=== PATIENT | male | born 1980 | race Caucasian/White ===

== ENCOUNTER 2016-09-10 08:35 | Emergency (ER) | payer MEDICAID ==
[2016-09-10 08:41] VITALS: BP 132/82
--- OUTSIDE RECORDS SUMMARY | 2016-09-10 08:52 | XMS REPORT | CCD ---
:1980 Author Name VALARIE DAVE Address [address] [facility] Unavailable [place], [place] [id number] Care Team Providers Name Role Phone MOHINDER AVERY Attending Physician Unavailable MOHINDER AVERY Er Physician 1 Unavailable NUNO Eason Registered Nurse Unavailable Vital Signs Vital Sign Value Unit Date/Time Recent/Initial? Weight Measured 225 lbs 10/10/2014 12:29 Initial VS Height 72 in 10/10/2014 12:29 Initial VS BMI (Body Mass Index) 30.52 kg/m^2 10/10/2014 12:29 Initial VS BSA (Body Surface Area) 2.28 m^2 10/10/2014 12:29 Initial VS Allergies Allergy Code Allergy Type Reaction Status DOXYCYCLINE 3640 Drug allergy PASS OUT, MOOD SWINGS Active Procedures Procedure Code Procedure Type Date INJECT INFUSE NEC 9929 ICD-9 CM, Volume 3 10/10/2014 RIBS-UNI [address] 10/10/2014 CHEST [id number] 10/10/2014 History of Immunizations Immunization Code Date DTP 11/13/1985 OPV 02 11/13/1985 MMR 03 12/02/1996 pneumococcal polysaccharide PPV23 33 09/17/2014 no vaccine administered 998 1980 Problems Unknown or Not Available. Results Unknown or Not Available. Active Medications Unknown or Not Available. Medications Administered During Visit Unknown or Not Available. Encounters Encounter Diagnosis Diagnosis Code Start Date CONTUSION OF CHEST WALL 9221 10/10/2014 Social History Smoking Status Code Start Date End Date Current every day smoker [id number] 1996 Patient Decision Aids Unknown or Not Available. Discharge Instructions You were admitted to [facility] on 10/10/2014 with a principal diagnosis of CONTUSION OF CHEST WALL. You had the following procedures done:INJECT INFUSE NEC You were discharged from [facility] on 10/10/2014. Should you have any questions prior to discharge, please contact a member of your healthcare team. If you have left the hospital and have any questions, please contact your primary care physician. Chief Complaint and Reason For Visit Chief Complaint Date of Onset RIGHT SIDE RIBS TOWARDS BACK Function Status Unknown or Not Available. Plan of Care Unknown or Not Available. Referral/Transition of Care Unknown or Not Available.
--- OUTSIDE RECORDS SUMMARY | 2016-09-10 08:52 | XMS REPORT | CCD ---
:1980 Author Name ULYSSES JOEL Address [address] Unavailable [place], [place] [id number] Care Team Providers Name Role Phone MOHINDER AVERY Attending Physician Unavailable Vital Signs Unknown or Not Available. Allergies Allergy Code Allergy Type Reaction Status DOXYCYCLINE 3640 Drug allergy PASS OUT, MOOD SWINGS Active Procedures Unknown or Not Available. History of Immunizations Immunization Code Date DTP 11/13/1985 OPV 02 11/13/1985 MMR 03 12/02/1996 pneumococcal polysaccharide PPV23 33 09/17/2014 no vaccine administered 998 1980 Problems Unknown or Not Available. Results Unknown or Not Available. Active Medications Unknown or Not Available. Medications Administered During Visit Unknown or Not Available. Encounters Encounter Diagnosis Diagnosis Code Start Date Strain of muscle, fascia and tendon of lower back, initial [id number] 04/21/2015 encounter Social History Smoking Status Code Start Date End Date Current every day smoker [id number] 1996 Patient Decision Aids Unknown or Not Available. Discharge Instructions You were admitted to [facility] on 04/21/2015 19:01 with a principal diagnosis of Strain of muscle, fascia and tendon of lower back, init You were discharged from [facility] on 04/21/2015 19:32 Should you have any questions prior to discharge, please contact a member of your healthcare team. If you have left the hospital and have any questions, please contact your primary care physician. Chief Complaint and Reason For Visit Chief Complaint Date of Onset LOWER BACK AND LEFT LEG INJ Function Status Unknown or Not Available. Plan of Care Unknown or Not Available. Referral/Transition of Care Unknown or Not Available.
--- OUTSIDE RECORDS SUMMARY | 2016-09-10 08:52 | XMS REPORT | CCD ---
:1980 Author Name VALARIE DAVE Address [address] [facility] Unavailable [place], [place] [id number] Care Team Providers Name Role Phone SANDIP HO Attending Physician Unavailable SANDIP HO Er Physician 1 Unavailable KAYLA Eason Registered Nurse Unavailable Vital Signs Vital Sign Value Unit Date/Time Recent/Initial? Weight Measured 225 lbs 07/06/2014 20:42 Initial VS Height 82 in 07/06/2014 20:42 Initial VS BMI (Body Mass Index) 23.53 kg/m^2 07/06/2014 20:42 Initial VS BSA (Body Surface Area) 2.43 m^2 07/06/2014 20:42 Initial VS Allergies Allergy Code Allergy Type Reaction Status DOXYCYCLINE 3640 Drug allergy PASS OUT, MOOD SWINGS Active Procedures Unknown or Not Available. History of Immunizations Unknown or Not Available. Problems Unknown or Not Available. Results Unknown or Not Available. Active Medications Unknown or Not Available. Medications Administered During Visit Unknown or Not Available. Encounters Encounter Diagnosis Diagnosis Code Start Date JOINT PAIN-FOREARM 99254 07/06/2014 Social History Smoking Status Code Start Date End Date Current every day smoker [id number] 1996 Patient Decision Aids Unknown or Not Available. Discharge Instructions You were admitted to [facility] on 07/06/2014 with a principal diagnosis of JOINT PAIN-FOREARM. You were discharged from [facility] on 07/06/2014. Should you have any questions prior to discharge, please contact a member of your healthcare team. If you have left the hospital and have any questions, please contact your primary care physician. Chief Complaint and Reason For Visit Chief Complaint Date of Onset LFT HAND INJ PAIN Function Status Unknown or Not Available. Plan of Care Unknown or Not Available. Referral/Transition of Care Unknown or Not Available.
--- OUTSIDE RECORDS SUMMARY | 2016-09-10 08:52 | XMS REPORT | CCD ---
:1980 Author Name ULYSSES JOEL Address [address] [facility] Unavailable [place], [place] [id number] Care Team Providers Name Role Phone MOHINDER AVERY Attending Physician Unavailable MOHINDER AVERY Er Physician 1 Unavailable Vital Signs Unknown or Not Available. Allergies Allergy Code Allergy Type Reaction Status DOXYCYCLINE 3640 Drug allergy PASS OUT, MOOD SWINGS Active Procedures Procedure Code Procedure Type Date LOWER LEG LT [id number] SNOMED CT 08/10/2015 ANKLE 3VWS LT 963867343 SNOMED CT 08/10/2015 History of Immunizations Immunization Code Date DTP 11/13/1985 OPV 02 11/13/1985 MMR 03 12/02/1996 pneumococcal polysaccharide PPV23 33 09/17/2014 Tdap 115 07/23/2015 no vaccine administered 998 1980 Problems Unknown or Not Available. Results Unknown or Not Available. Active Medications Unknown or Not Available. Medications Administered During Visit Unknown or Not Available. Encounters Encounter Diagnosis Diagnosis Code Start Date Sprain of tibiofibular ligament of left ankle, initial [id number] 08/10/2015 encounter Social History Smoking Status Code Start Date End Date Current every day smoker [id number] 1996 Patient Decision Aids Unknown or Not Available. Discharge Instructions You were admitted to [facility] on 08/10/2015 20:21 with a principal diagnosis of Sprain of tibiofibular ligament of left ankle, init encntr You were discharged from [facility] on 08/10/2015 21:46 Should you have any questions prior to discharge, please contact a member of your healthcare team. If you have left the hospital and have any questions, please contact your primary care physician. Chief Complaint and Reason For Visit Chief Complaint Date of Onset LEFT ANKLE LEG PAIN SWOLLEN Function Status Unknown or Not Available. Plan of Care Unknown or Not Available. Referral/Transition of Care Unknown or Not Available.
[2016-09-10 09:04] LABS: Hematocrit 42.8 % (42.0-52.0); Hemoglobin 14.5 gm/dL (13.5-18.0); Mean Cell Volume 89.4 fl (78-100); Mean Corpuscular Hemoglobin 30.3 pg (27-31); Mean Corpuscular Hgb Conc 33.9 g/dl (32-36); Neutrophil # 5.3 K/mm3 (1.3-6.0); Neutrophil % 67.2 % (42-75.0); Platelet Count 258 K/mm3 (150-450); Red Blood Count 4.79 M/mm3 (4.7-6.0); Red Cell Distribution Width 12.9 % (11.5-14.0); White Blood Count 7.9 K/mm3 (4.0-10.5)
[2016-09-10 09:16] LABS: Albumin * 3.9 gm/dl (3.4-5.0); BUN/Creatinine Ratio 22.6 (9.0-21.6); Bilirubin, Total 0.3 mg/dL (0.0-1.1); Ca. Corrected For Albumin 9.3 mg/dL (8.4-10.2); Calcium * 9.5 mg/dL (7.9-10.9); Carbon Dioxide 32.3 mmol/L (24-32.6); Potassium 4.3 mmol/L (3.4-4.6); Total Protein 7.8 gm/dL (6.2-8.2)
[2016-09-10] MEDS ORDERED: KETOROLAC TROMETHAMINE 60 MG/2 ML VIAL IM ONE ×2 (09:19→09:40)
--- NOTE | 2016-09-10 09:41 | ERNOTE ---
ENT HPI Date of Service: 09/10/16 Presenting Symptoms: other - patient presents with pain and swelling in front of left ear. was seen in [facility] days ago, no improvement Time Seen by Provider: 09/10/16 08:40 Source: patient Exam Limitations: no limitations - Immun/Allergies/Home Medications Immunizations: IMMUNIZATION HX Immunizations Up to Date Yes Allergies/Adverse Reactions: Allergies Allergy/AdvReac Type Severity Reaction Status Date / Time doxycycline Allergy Other Verified 09/10/16 08:41 Home Medications: HOME MEDICATIONS Albuterol Sulfate [Proair Hfa] 2 puff IH PRN PRN 12/20/13 [Last Taken Unknown] Allopurinol [Zyloprim (Allopurinol)] 100 mg PO DAILY 12/20/13 [Last Taken Unknown] Cyclobenzaprine HCl [Flexeril] 10 mg PO PRN PRN 12/20/13 [Last Taken Unknown] Ibuprofen [Motrin] 800 mg PO BID 12/20/13 [Last Taken Unknown] Meloxicam [Mobic] 15 mg PO PRN PRN 12/20/13 [Last Taken Unknown] Indomethacin [Indocin] 25 mg PO TID 12/25/13 [Last Taken Unknown] Cephalexin Monohydrate [Keflex] 500 mg PO QID #40 cap 09/10/16 [Last Taken Unknown] Tramadol HCl [Rybix Odt] 50 mg PO QID #20 tab.rapdis 09/10/16 [Last Taken Unknown] - History of Present Illness Narrative: pain and swelling preauricular region. has been presen for last 2-3 days Severity: Present: moderate ENT Location: Present: ear (L) Prearrival Treatment: Present: no prearrival treatment Modifying Factors - Improves: Reports: nothing Modifying Factors - Worsens: Reports: nothing Associated Symptoms - ENT: Reports: fever, malaise Prior Treament: Reports: recently seen, treated by physician Review of Systems - Review of Systems Constitutional: Present: fatigue, malaise EYE: Present: no symptoms reported ENT: Present: other - pain and swelling preauricular area of left ear,minnimal drainage at top of swelling - Patient's Past Medical History Patient History - Medical: Diabetes Type 2, Other Patient History - Cardiac/Respiratory: Hypertension, Hyperlipidemia Patient History - Cancer: No Hx of Cancer - Family History Family History:: no untoward family reactions to anesthesia, no familial bleeding tendencies, no family history of clotting disorders, no family history of premature - Social History Living Situations: alone Abuse History: No History of abuse Psych History: No pertinent hx Smoking Status: Current every day smoker Have you smoked in the past 12 months: Yes Do you dip or chew tobacco: No Patient requests Smoking Cessation Consult: No Initiate information on Smoking Cessation: No Alcohol Use: none - Immunizations Immunizations Up to Date: Yes Hx Pneumococcal Vaccination: No History of Influenza Vaccine: No Physical Exam - Physical Exam General Appearance: Present: mild distress, anxious Eye Exam: Normal inspection: bilateral, PERRL: bilateral, EOMI: bilateral Ears, Nose, Throat: Present: normal ENT inspection - area of swelling preauricular regionwith drainage at top end of swelling Neck: Present: normal inspection, nontender Respiratory: Present: no respiratory distress, normal breath sounds, no accessory muscle use, chest nontender, lungs clear Cardiovascular/Chest: Present: regular rate, rhythm, no murmur, normal peripheral pulses Peripheral Pulses: N=norm/S=strong/W=weak/B=bound/A=absent: Carotid (R): Normal , Carotid (L): Normal, Radial (R): Normal, Radial (L): Normal, Femoral (R): Normal, Femoral (L): Normal, Dorsalis-pedis (R): Normal, Dorsalis-pedis (L): Normal Gastrointestinal/Abdominal: Present: normal bowel sounds, nontender, nondistended, soft, no organomegaly Back Exam: Present: normal inspection, normal range of motion, no CVA tenderness , no vertebral tenderness Extremity Exam: Present: normal inspection, non-tender, normal range of motion, no edema Neurological Exam: Present: alert, oriented, normal mood/affect, no motor/ sensory deficits Skin Exam: Present: normal color, warm/dry Lymphatic Exam: Present: no adenopathy ED Progress - Results and Orders Patient's Lab Results:: I have reviewed the patient's lab results. - Vital Signs Patient's Vital Signs:: I have reviewed the patient's vital signs. Vital Signs: Vital Signs 09/10/16 08:38 Temperature 37.1 C Pulse Rate 95 Respiratory 14 Rate Blood Pressure 132/82 O2 Sat by Pulse 97 Oximetry - Progress/Reassessment Chief Complaint: Earache Progress:: Unchanged Departure Clinical Impression: Cellulitis and abscess of face - Departure Disposition: Home self-care Condition: Fair Instructions: Cellulitis, Adult, [id number] Prescriptions: Cephalexin Monohydrate [Keflex] 500 mg PO QID #40 cap Tramadol HCl [Rybix Odt] 50 mg PO QID #20 tab.janadis
== END 2016-09-10 09:52 | disposition home or self-care (01) ==
LOC: ER 08:35
DX: L03.211 Cellulitis of face (principal); L02.01 Cutaneous abscess of face; Z72.0 Tobacco use